=== PATIENT | female | born 1990 | race Caucasian/White ===

== ENCOUNTER 2017-03-11 22:17 | Emergency (ER) | payer OTHER ==
[2017-03-11 22:22] VITALS: BP 120/74; PULSE 82; TEMP 98.2; BMI 29.5
--- NOTE | 2017-03-11 22:51 | PDOC ---
History of Present Illness - General Chief Complaint: Bite Stated Complaint: BITE Time Seen by Provider: 03/11/17 22:39 History Source: Patient Exam Limitations: No Limitations - History of Present Illness Initial Comments: 03/11/17 22:46 CC redness left thigh post insect bite; this pm Occurred: reports: this evening Severity: reports: mild Pain Location: reports: lower extremity Past History - Past Medical History Allergies/Adverse Reactions: Allergies Allergy/AdvReac Type Severity Reaction Status Date / Time No Known Allergies Allergy Verified 03/11/17 22:22 Home Medications: Ambulatory Orders NK [No Known Home Medication] 03/11/17 - Immunization History Immunization Up to Date: No - Psycho/Social/Smoking Cessation Hx Anxiety: No Suicidal Ideation: No Smoking Status: No Smoking History: Never smoked Have you smoked in the past 12 months: No Number of Cigarettes Smoked Daily: 0 Information on smoking cessation initiated: No Substance Use Type: None Review of Systems - Review of Systems Constitutional: No: Chills, Fever HEENTM: Yes: Symptoms Reported Respiratory: No: Symptoms reported, Cough Cardiac (ROS): Yes: Symptoms Reported ABD/GI: No: Symptoms Reported *Physical Exam - Vital Signs Last Vital Signs Temp Pulse Resp BP Pulse Ox 98.2 F 82 18 120/74 99 03/11/17 22:19 03/11/17 22:19 03/11/17 22:19 03/11/17 22:19 03/11/17 22:19 - Physical Exam General Appearance: Yes: Appropriately Dressed HEENT: positive: TMs Normal, Pharynx Normal Neck: positive: Supple. negative: Tender, Trachea midline, Rigid Respiratory/Chest: positive: Lungs Clear Integumentary: positive: Other (10 cm x 4 cm erythemic area right center lateral thigh with center small blister; no FB) *DC/Admit/Observation/Transfer Diagnosis at time of Disposition: Insect bite Qualifiers: Encounter type: initial encounter Qualified Code(s): W57.XXXA - Bitten or stung by nonvenomous insect and other nonvenomous arthropods, initial encounter - Discharge Dispostion Disposition: HOME Condition at time of disposition: Stable Admit: No - Patient Instructions Additional Instructions: start antibiotic only if rest, blister enlarges
== END 2017-03-12 01:55 | disposition home or self-care (01) ==
LOC: JERFT 22:17
DX: S70.362A Insect bite (nonvenomous), left thigh, initial encounter (principal); W57.XXXA Bitten or stung by nonvenomous insect and other nonvenomous arthropods, initial encounter; Y93.9 Activity, unspecified; Y92.9 Unspecified place or not applicable
CPT/HCPCS: 99281-25

== ENCOUNTER 2017-03-16 06:05 | Emergency (ER) | payer OTHER ==
[2017-03-16 06:22] VITALS: BP 129/63; PULSE 65; TEMP 98; BMI 29.2
--- NOTE | 2017-03-16 07:11 | PDOC ---
History of Present Illness - General Chief Complaint: Pain Stated Complaint: RE VISIT History Source: Patient Exam Limitations: No Limitations - History of Present Illness Initial Comments: 03/16/17 07:34 Patient is a 26-year-old female with past medical history of migraines who presents to the emergency department today complaining of a rash on her right upper thigh. Patient states she was seen in this emergency department on 03/11/17 for a bug bite to her right upper thigh. She had a large rash from the bug bite at that time. She was given Bactrim and she has been taking the Bactrim as prescribed. Today she states that the rash appears worse to her, and it hurts to touch it. She states that there was a large blister over the area of redness, and she popped the blister. Clear fluid drained from the blister. She states that the pain is worse when walking and it hurts to wear jeans. She has not taken any medication for pain. She denies itching, fevers, chills, weakness, malaise, nausea, vomiting and diarrhea. Past History - Travel Traveled outside of the country in the last 30 days: No Close contact w/someone who was outside of country & ill: No - Past Medical History Allergies/Adverse Reactions: Allergies Allergy/AdvReac Type Severity Reaction Status Date / Time No Known Allergies Allergy Verified 03/16/17 06:17 Home Medications: Ambulatory Orders Sulfamethoxazole/Trimethoprim [Bactrim Ds -] 1 tab PO BID #14 tablet 03/11/17 Clobetasol Prop 0.05% Top Cr [Temovate (Nf)] 30 gm NR BID #1 tube 03/16/17 Cardiac Disorders: Yes (MVP) Other medical history: Migrains - Immunization History Immunization Up to Date: No - Psycho/Social/Smoking Cessation Hx Anxiety: No Suicidal Ideation: No Smoking Status: No Smoking History: Never smoked Have you smoked in the past 12 months: No Number of Cigarettes Smoked Daily: 0 Information on smoking cessation initiated: No Hx Alcohol Use: No Drug/Substance Use Hx: No Substance Use Type: None Review of Systems - Review of Systems Able to Perform ROS?: Yes Is the patient limited Serbian proficient: No Constitutional: No: Chills, Fever, Malaise, Weakness Musculoskeletal: No: Joint Pain, Muscle Pain, Joint Stiffness Integumentary: Yes: Erythema (R mid thigh, 10x4 cm), Rash (R mid thigh, 10x4 cm. reports pain to the touch) Neurological: No: Headache, Numbness, Paresthesia, Weakness *Physical Exam - Vital Signs Last Vital Signs Temp Pulse Resp BP Pulse Ox 98.0 F 65 18 129/63 99 03/16/17 06:18 03/16/17 06:18 03/16/17 06:18 03/16/17 06:18 03/16/17 06:18 - Physical Exam Comments: 03/16/17 07:38 GENERAL: The patient is awake, alert, and fully oriented, in no acute distress. HEAD: Normal with no signs of trauma. EYES: Pupils equal, round and reactive to light, extraocular movements intact, sclera anicteric, conjunctiva clear. No lesions in the mouth. EXTREMITIES: Normal range of motion, no edema. NEUROLOGICAL: Normal speech, normal gait. PSYCH: Normal mood, normal affect. SKIN: There is a an approximate 10 x 4 cm oblong patch of redness. It is well- defined. No areas of surrounding redness. The area is cool to the touch. There are no other bulla present at this time. No target lesion. Otherwise, Warm, Dry , normal turgor, no lesions noted. Medical Decision Making - Medical Decision Making 03/16/17 07:43 Patient is a 26-year-old female with past medical history of migraines who presents to the emergency department today complaining of pain on her right upper thigh from a 10 x 4 cm oblong rash. There does not appear to be any evidence of cellulitis at this time. Patient is afebrile and vital signs are stable. Most likely this is the normal healing process of her bug bite. Less likely Asif Casillas at this time as she had the blister before starting the antibiotics. The rash is very well-defined to her right upper thigh, she has no constitutional symptoms, no mucosal lesions, and no other bulla at this time. We will discharge home at this time. Patient given cortisone cream for the redness, she is also given ibuprofen to take as needed for pain. Patient is instructed to avoid alcohol or other drying agents on the rash. She is to cover with antibiotic ointment to prevent further infection. She should also finish her course of Bactrim. Patient understands she should return to the ER if she has constitutional symptoms, worsening of her rash, or any changes in her symptoms. Patient feels comfortable with discharge planning. She understands all discharge instructions and all questions were answered at this time. *DC/Admit/Observation/Transfer Diagnosis at time of Disposition: Insect bite Qualifiers: Encounter type: subsequent encounter Qualified Code(s): W57.XXXD - Bitten or stung by nonvenomous insect and other nonvenomous arthropods, subsequent encounter - Discharge Dispostion Disposition: HOME Condition at time of disposition: Good Admit: No - Prescriptions Prescriptions: Clobetasol Prop 0.05% Top Cr [Temovate (Nf)] 30 gm NR BID #1 tube - Referrals Referrals: Susan Agustin [Primary Care Provider] - Darcie Cobb MD [Staff Physician] - - Patient Instructions Printed Discharge Instructions: DI for Insect Bites and Stings Additional Instructions: It appears that your insect bite is healing. Continue taking the Bactrim as prescribed. Take ibuprofen as needed for pain, not to exceed 3000 mg per day. You may use hydrocortisone on the affected area. Your prescribed a prescription strength cortisone. Use it twice a day. You may also use antibiotic ointment on the area to prevent infection. Keep the area covered to avoid rubbing of the area. Your given a referral for a docket clerk. Call the office for an appointment. Return to the emergency department if you have fevers, chills, nausea, vomiting , worsening pain or extension of your rash, or any changes in your symptoms. - Post Discharge Activity Work/School Note: Back to Work
== END 2017-03-16 08:15 | disposition home or self-care (01) ==
LOC: JER 06:05
DX: Z09 Encounter for follow-up examination after completed treatment for conditions other than malignant neoplasm (principal); W57.XXXA Bitten or stung by nonvenomous insect and other nonvenomous arthropods, initial encounter; Y93.89 Activity, other specified; Y92.9 Unspecified place or not applicable
CPT/HCPCS: 99281-25